=== PATIENT | female | born 1945 | race Two or more races ===

== ENCOUNTER 2018-05-11 21:01 | Emergency (ER) | payer MEDICARE, MEDICAID ==
[~2018-05-11] VITALS: Ht 160 cm; Wt 88.0 kg
--- NOTE | 2018-05-11 21:05 | NUR ---
EKG AT BEDSIDE
--- NOTE | 2018-05-11 21:05 | NUR ---
LAB AT BEDSIDE FOR BLOOD DRAW
--- NOTE | 2018-05-11 21:12 | NUR ---
CALLED TELESTROKE [phone] 1999 R S/D WK +AMS SHARRON STATES HE WILL CALL BACK IN A FEW MINUTES
[2018-05-11] MEDS ORDERED: IOHEXOL-350 100 ML VIAL IV ONE (21:13)
[2018-05-11] MEDS ORDERED: CT SWABBABLE VALVE TRANS SET 1 EA INFUS.SET MC ONE (21:13)
--- NOTE | 2018-05-11 21:14 | NUR ---
PT GONE TO CT
--- NOTE | 2018-05-11 21:14 | NUR ---
BIB FAMILY COMPLAING OF WEAKNESS. RT SIDED WEAKNESS PRESENT. 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 UNSTABLE GAIT UPON ARRIVAL AMBULATING TO BED WITH FAMILY ASSISTANCE. 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 FAMILY STATES "SHE NORMALLY WALKS WITHOUT ASSISTANCE". NO S/S SOB. MD SULTANA AT BEDSIDE INITIATED CODE STROKE PROTOCOLS.
[2018-05-11 21:19] LABS: BASOPHILS % (AUTO) 0.4 % (0.0-2.0); LYMPHOCYTES # (AUTO) 2.8 /CMM (0.8-4.8); MEAN CORPUSCULAR HEMOGLOBIN 30 PG (26.0-33.0); MONOCYTES # (AUTO) 0.5 /CMM (0.1-1.30)
[2018-05-11 21:22] LABS: EOSINOPHILS % (AUTO) 2.7 % (0.0-6.0); HEMATOCRIT 36 % (33-45); HEMOGLOBIN 12.4 g/dL (11.5-14.8); LYMPHOCYTES % (AUTO) 41.1 % (20.0-44.0); MEAN CORPUSCULAR HGB CONC 35 g/dl (31.0-36.0); MEAN CORPUSCULAR VOLUME 87 fL (82-100); NEUTROPHILS # (AUTO) 3.3 /CMM (1.8-8.9); NEUTROPHILS % (AUTO) 48.8 % (43.0-81.0); PLATELET COUNT (AUTO) 304 /CMM (150-450); RDW COEFFICIENT OF VARIATION 12.6 (11.5-15.0); RED BLOOD CELL COUNT(AUTO) 4.09 MIL/uL (4.0-5.2); WHITE BLOOD COUNT (AUTO) 6.8 K/uL (4.3-11.0)
--- NOTE | 2018-05-11 21:27 | NUR ---
PT IS BACK FROM CT
[2018-05-11 21:31] LABS: CALCIUM, SERUM 9.5 mg/dL (8.5-10.1); CARBON DIOXIDE 22 mmol/L (21-32); CHLORIDE 105 mmol/L (98-107); CREATININE 1.2 mg/dL (0.6-1.3); GLUCOSE 86 mg/dL (74-106); POTASSIUM 3.7 mmol/L (3.5-5.1); SODIUM SERUM 136 mmol/L (136-145); UREA NITROGEN, BLOOD 15 mg/dL (7-18)
[2018-05-11 21:34] LABS: INR 0.99 (0.85-1.15)
--- NOTE | 2018-05-11 21:34 | NUR ---
DR SULTANA ON THE PHONE WITH DR MILLER (NEUROLOGIST)
[2018-05-11 21:37] LABS: ALANINE AMINOTRANSFERASE 20 U/L (12-78); ALBUMIN 3.5 g/dL (3.4-5.0); ALKALINE PHOSPHATASE 72 U/L (46-116); ASPARTATE AMINOTRANSFERASE 18 U/L (15-37); BILIRUBIN,DIRECT 0.1 mg/dL (0.0-0.2); BILIRUBIN,TOTAL 0.4 mg/dL (0.2-1.0); TOTAL PROTEIN, SERUM 8.3 g/dL (6.4-8.2)
[2018-05-11 21:38] LABS: TROPONIN I < 0.017 ng/mL (0.00-0.056)
[2018-05-11] MEDS ORDERED: ENALAPRILAT DIHYD. (2.5MG/ML) 1.25 MG/ML VIAL IV ONE ×3 (21:44→23:02)
[2018-05-11] MEDS ORDERED: LEVETIRACETAM (500MG) 500 MG/5 ML VIAL IV ONE (21:44)
--- NOTE | 2018-05-11 21:49 | NUR ---
DR SULTANA ON THE PHONE WITH DR BEST
--- NOTE | 2018-05-11 21:50 | NUR ---
PT AA/O X2 TO PERSON AND PLACE. NEURO CHECK COMPLETED. VISUAL WHITING ABSENT UPPER LEFT QUANDRANTS. AND UPPER AND LOWER RT QUADRANTS. NIHH PAPER SHOWN BUT PT UNABLE TO SEE PAPER. NO VERBAL DEFICITS WITH [facility] TESTING.
[2018-05-11 21:54] LABS: CHOLESTEROL 237 mg/dL (<200); HDL CHOLESTEROL 27 mg/dL (40-60); LDL 158 mg/dL (0-99); TRIGLYCERIDES 270 mg/dL (30-150)
[2018-05-11] MEDS ORDERED: ENALAPRILAT INJ (1.25 MG/ML) 1.25 MG/ML VIAL IV PRN ×2 (22:00→22:30)
[2018-05-11] MEDS ORDERED: LEVETIRACETAM (500MG) 500 MG in IV NS 0.9% 100 ML IV ONE (22:00)
--- NOTE | 2018-05-11 22:10 | NUR ---
20G IV STARTED IN RFA BY JUSTIN GODOY
--- NOTE | 2018-05-11 22:25 | NUR ---
VASOTEC 1.25MG GIVEN IVP RFA 20G BY JUSTIN GODOY
--- NOTE | 2018-05-11 22:32 | NUR ---
PT'S GRANDDAUGHTER, TIESHA, IS TAKING HER MOTHER HOME AND WANTS TO BE CALLED WITH TRANSFER INFORMATION. TIESHA WILL MEET THE PT (HER GRANDMOTHER) AT THE HOSPITAL ONCE WE HAVE THE TRANSFER INFORMATION.
--- NOTE | 2018-05-11 22:32 | NUR ---
DAPHNEY MOTLEY AT
--- NOTE | 2018-05-11 22:55 | NUR ---
SPOKE TO DR. ANDRADE RE: PT'S BP ELEVATED 160/83. NEW ORDERS GIVEN.
--- NOTE | 2018-05-11 22:58 | NUR ---
PLACED PT ON BEDPAN.
--- NOTE | 2018-05-11 23:01 | NUR ---
NON ADMIN VASOTEC 2.5. DC BY SBP 148/85
--- NOTE | 2018-05-11 23:10 | NUR ---
PT REMOVED FROM BEDPAN AND APPROX 600 ML URINE OUTPUT NOTED. LINENS WERE CHANGED AND PT REC'D A WARM BLANKET. PT PLACED IN HIGH FOWLERS POSITION. VSS.
--- NOTE | 2018-05-11 23:37 | NUR ---
CALL FROM [facility]. PT ACCEPTED, ICU [address] BEST/DR SIMPSON. # FOR REPORT [phone] OPT[facility] 1, [id number].
--- NOTE | 2018-05-11 23:43 | NUR ---
[facility] CALLED FOR TRANSPORT ETA 60-75 MINUTES
--- NOTE | 2018-05-11 23:44 | NUR ---
REPORT GIVEN TO JUSTIN CRUZ
[2018-05-12 00:04] VITALS: BP 121/56
--- NOTE | 2018-05-12 00:30 | NUR ---
YOLA MOTLEY'S GRANDDAUGHTER CALLED AND WAS TOLD ABOUT THE TRANSFER INFORMATION AND ETA OF AMBULANCE.
--- NOTE | 2018-05-12 00:50 | NUR ---
PT'S DAUGHTER ARRIVED AND WILL TELL PT'S GRANDDAUGHTER, TIESHA ABOUT PT LEAVING FOR [facility] VIA AMBULANCE.
--- NOTE | 2018-05-12 00:58 | NUR ---
AMBULANCE EMT ARRIVED AND REPORT GIVEN TO EMT. COPY OF CHART GIVEN TO EMT ALONG WITH COPY OF IMAGING ON DISK. Patient Tranfers to outside Facility Physician:DR. BEST/DR SIMPSON Location:[facility].
== END 2018-05-12 01:05 ==
LOC: ER 21:04
DX: I62.9 Nontraumatic intracranial hemorrhage, unspecified (principal); I10 Essential (primary) hypertension; R07.89 Other chest pain
CPT/HCPCS: 36415; 70450-TC; 70496-TC; 70498-TC; 71045-TC; 80048-TC; 80061-TC; 80076-TC; 82962-TC; 84484-TC; 85025-TC; 85730-TC; A4606; J1953; J3490; J7030; Q9967; Z7610